=== PATIENT | male | born 1970 | race Caucasian/White ===

== ENCOUNTER 2017-04-18 16:57 | Emergency (ER) | payer SELFPAY ==
[~2017-04-18] VITALS: Ht 160 cm; Wt 80.0 kg
[~2017-04-18 16:57] MED LIST: IBUP800T23 PO
[2017-04-18 16:58] VITALS: BP 186/89; PULSE 114; RESP 16; TEMP 98.4; O2SAT 98
--- NOTE | 2017-04-18 18:42 | PD ---
HPI Chief Complaint: Psychiatric Symptoms Time Seen by Provider: 18:31 Travel History International Travel<30 days: No Contact w/Intl Traveler<30days: No Traveled to known affect area: No History of Present Illness HPI 46-year-old male with history of hypercholesterolemia, presents to emergency department for evaluation. Patient states that she is recently homeless for about a week. He tells me that this is settling in and he is worsening depression. He has contemplated suicide by putting his belt around his neck. Denies any illicit drug use. Reports alcohol and tobacco dependence. He has no other symptoms to report. PFSH Past Medical History High Cholesterol: Yes Diabetes: No Diminished Hearing: No Tetanus Vaccination: < 5 Years Influenza Vaccination: No ?: Not Past Surgical History Tonsillectomy: Yes Social History Alcohol Use: Yes (BEER THREE TIMES A MONTH ) Tobacco Use: Yes (1 ppd) Substance Use: No Allergies-Medications (Allergen,Severity, Reaction): Coded Allergies: No Known Allergies (Unverified , 06/13/16) Reported Meds & Prescriptions Reported Meds & Active Scripts Active Ibuprofen 800 Mg Tab 800 Mg PO Q6HR PRN Review of Systems Except as stated in HPI: all other systems reviewed are Neg Physical Exam Narrative GENERAL: Well-nourished male patient, in no acute distress SKIN: Focused skin assessment warm/dry. HEAD: Atraumatic. Normocephalic. EYES: Pupils equal and round. No scleral icterus. No injection or drainage. ENT: No nasal bleeding or discharge. Mucous membranes pink and moist. NECK: Trachea midline. No JVD. CARDIOVASCULAR: Tachycardic rate and rhythm. No murmur appreciated. RESPIRATORY: No accessory muscle use. Diminished to auscultation. Breath sounds equal bilaterally. GASTROINTESTINAL: Abdomen and tonic, soft, nontender. Hepatic and splenic margins not palpable. MUSCULOSKELETAL: No obvious deformities. No clubbing. No cyanosis. No edema. NEUROLOGICAL: Awake and alert. No obvious cranial nerve deficits. Motor grossly within normal limits. Normal speech. Data Data Last Documented VS Vital Signs Date Time Temp Pulse Resp B/P (MAP) Pulse Ox O2 Delivery O2 Flow Rate FiO2 04/18/17 18:34 18 04/18/17 16:58 98.4 114 186/89 (121) 98 Orders Orders Complete Blood Count With Diff (04/18/17 18:31) Basic Metabolic Panel (Bmp) (04/18/17 18:31) Psych Screen (04/18/17 18:31) Drug Screen, Random Urine (04/18/17 18:31) Alcohol (Ethanol) (04/18/17 18:31) Labs Laboratory Tests Test 04/18/17 18:40 White Blood Count 19.0 TH/MM3 Red Blood Count 5.94 MIL/MM3 Hemoglobin 17.2 GM/DL Hematocrit 48.3 % Mean Corpuscular Volume 81.2 FL Mean Corpuscular Hemoglobin 28.9 PG Mean Corpuscular Hemoglobin Concent 35.6 % Red Cell Distribution Width 15.1 % Platelet Count 326 TH/MM3 Mean Platelet Volume 8.0 FL Neutrophils (%) (Auto) 63.1 % Lymphocytes (%) (Auto) 27.8 % Monocytes (%) (Auto) 5.9 % Eosinophils (%) (Auto) 1.9 % Basophils (%) (Auto) 1.3 % Neutrophils # (Auto) 12.0 TH/MM3 Lymphocytes # (Auto) 5.3 TH/MM3 Monocytes # (Auto) 1.1 TH/MM3 Eosinophils # (Auto) 0.4 TH/MM3 Basophils # (Auto) 0.2 TH/MM3 CBC Comment AUTO DIFF Blood Urea Nitrogen 16 MG/DL Creatinine 0.95 MG/DL Random Glucose 104 MG/DL Calcium Level 9.1 MG/DL Sodium Level 138 MEQ/L Potassium Level 3.9 MEQ/L Chloride Level 104 MEQ/L Carbon Dioxide Level 28.0 MEQ/L Anion Gap 6 MEQ/L Estimat Glomerular Filtration Rate 86 ML/MIN Urine Opiates Screen NEG Urine Barbiturates Screen NEG Urine Amphetamines Screen NEG Urine Benzodiazepines Screen NEG Urine Cocaine Screen NEG Urine Cannabinoids Screen NEG Ethyl Alcohol Level LESS THAN 3 MG/DL MDM Medical Decision Making Medical Screen Exam Complete: Yes Emergency Medical Condition: Yes Medical Record Reviewed: Yes Differential Diagnosis Mood disorder versus personality disorder versus adjustment reaction disorder Narrative Course 46-year-old male presents to emergency department for evaluation of suicidal thoughts. patient appears without distress. His vital signs are stable. Lab Work is with leukocytosis, patient does have history of this.. He is medically cleared at this time to undergo psychiatric screening for further evaluation and disposition. Mental health screening discussed with the patient. Psychiatric screen ordered. Diagnosis Primary Impression: Adjustment disorder with disturbance of emotion Condition: Stable Marisol Mcdermott Apr 18, 2017 18:42
[2017-04-18 19:11] LABS: BASOPHIL # 0.2 TH/MM3 (0-0.2); BASOPHIL % 1.3 % (0.0-2.0); EOSINOPHIL # 0.4 TH/MM3 (0-0.4); EOSINOPHIL % 1.9 % (0.0-4.0); HEMATOCRIT 48.3 % (39.0-51.0); LYMPH % 27.8 % (9.0-44.0); LYMPHOCYTE # 5.3 TH/MM3 (1.0-4.8); MEAN CELL VOLUME 81.2 FL (80.0-100.0); MEAN CORPUSCULAR HEMOGLOBIN 28.9 PG (27.0-34.0); MEAN CORPUSCULAR HGB CONC 35.6 % (32.0-36.0); MONO % 5.9 % (0.0-8.0); NEUT % 63.1 % (16.0-70.0); PLATELET COUNT 326 TH/MM3 (150-450); RED BLOOD COUNT 5.94 MIL/MM3 (4.50-5.90); RED CELL DISTRIBUTION WIDTH 15.1 % (11.6-17.2)
[2017-04-18 19:19] LABS: ALCOHOL LESS THAN 3 MG/DL (0-5); ANION GAP 6 MEQ/L (5-15); BLOOD UREA NITROGEN 16 MG/DL (7-18); CHLORIDE 104 MEQ/L (98-107); GLOMERULAR FILTRATION RATE 86 ML/MIN (>89); POTASSIUM 3.9 MEQ/L (3.5-5.1); SODIUM (NA) 138 MEQ/L (136-145)
[2017-04-18 19:49] LABS: HEMO FLAGS AUTO DIFF
[2017-04-18 19:58] VITALS: BP 128/81; PULSE 105; RESP 16; O2SAT 97
[2017-04-18 20:39] LABS: BANDS 1 % (0-6); BASOPHILS 1 % (0-2); EOSINOPHILS 1 % (0-4); NEUTROPHIL # MANUAL DIFF 11.8 TH/MM3 (1.8-7.7); PLATELET ESTIMATE SMEAR NORMAL (NORMAL); PLATELET MORPHOLOGY NORMAL (NORMAL); POLYS (SEG NEUTROPHILS) 61 % (16-70); SCAN/DIFF FINAL DIFF MANUAL; WBC DIFF SAMPLE 100
[2017-04-18 22:14] VITALS: BP 128/74; PULSE 105; RESP 19; O2SAT 98
[2017-04-19 02:27] VITALS: BP 136/72; PULSE 105; RESP 18; O2SAT 93
[2017-04-19 06:32] VITALS: BP 139/63; PULSE 98; RESP 16; O2SAT 95
[2017-04-19 11:15] VITALS: BP 152/77; PULSE 93; RESP 18; TEMP 97.8; O2SAT 98
--- NOTE | 2017-04-19 11:17 | PD ---
Physical Exam Date Seen by Provider: Apr 19, 2017 Time Seen by Provider: 11:15 Narrative 46-year-old male who was previously brought in with psychiatric complaints of depression and suicidal ideation after becoming homeless. Patient was medically cleared previously. Patient has no previous psychiatric history. Patient was not Martinez acted but has been voluntary during his stay here. This morning the patient contracts for safety and feels that he is not suicidal at all and wants to leave in order to find himself someplace to stay. I feel the patient is psychiatrically and medically stable for discharge. Data Data Last Documented VS Vital Signs Date Time Temp Pulse Resp B/P (MAP) Pulse Ox O2 Delivery O2 Flow Rate FiO2 04/19/17 06:32 98 16 139/63 (88) 95 Room Air 04/18/17 16:58 98.4 Orders Orders Complete Blood Count With Diff (04/18/17 18:31) Basic Metabolic Panel (Bmp) (04/18/17 18:31) Psych Screen (04/18/17 18:31) Drug Screen, Random Urine (04/18/17 18:31) Alcohol (Ethanol) (04/18/17 18:31) Diet Regular Basic (04/19/17 Breakfast) Diet Regular Basic (04/19/17 Lunch) Labs Laboratory Tests Test 04/18/17 18:40 White Blood Count 19.0 TH/MM3 Red Blood Count 5.94 MIL/MM3 Hemoglobin 17.2 GM/DL Hematocrit 48.3 % Mean Corpuscular Volume 81.2 FL Mean Corpuscular Hemoglobin 28.9 PG Mean Corpuscular Hemoglobin Concent 35.6 % Red Cell Distribution Width 15.1 % Platelet Count 326 TH/MM3 Mean Platelet Volume 8.0 FL Neutrophils (%) (Auto) 63.1 % Lymphocytes (%) (Auto) 27.8 % Monocytes (%) (Auto) 5.9 % Eosinophils (%) (Auto) 1.9 % Basophils (%) (Auto) 1.3 % Neutrophils # (Auto) 12.0 TH/MM3 Lymphocytes # (Auto) 5.3 TH/MM3 Monocytes # (Auto) 1.1 TH/MM3 Eosinophils # (Auto) 0.4 TH/MM3 Basophils # (Auto) 0.2 TH/MM3 CBC Comment AUTO DIFF Differential Total Cells Counted 100 Neutrophils % (Manual) 61 % Band Neutrophils % 1 % Lymphocytes % 29 % Monocytes % 7 % Eosinophils % 1 % Basophils % 1 % Neutrophils # (Manual) 11.8 TH/MM3 Differential Comment FINAL DIFF MANUAL Atypical Lymphocytes % Platelet Estimate NORMAL Platelet Morphology Comment NORMAL Blood Urea Nitrogen 16 MG/DL Creatinine 0.95 MG/DL Random Glucose 104 MG/DL Calcium Level 9.1 MG/DL Sodium Level 138 MEQ/L Potassium Level 3.9 MEQ/L Chloride Level 104 MEQ/L Carbon Dioxide Level 28.0 MEQ/L Anion Gap 6 MEQ/L Estimat Glomerular Filtration Rate 86 ML/MIN Urine Opiates Screen NEG Urine Barbiturates Screen NEG Urine Amphetamines Screen NEG Urine Benzodiazepines Screen NEG Urine Cocaine Screen NEG Urine Cannabinoids Screen NEG Ethyl Alcohol Level LESS THAN 3 MG/DL MDM Medical Record Reviewed: Yes Supervised Visit with ROLANDO: Yes Narrative Course 46-year-old male who was previously brought in with psychiatric complaints of depression and suicidal ideation after becoming homeless. Patient was medically cleared previously. Patient has no previous psychiatric history. Patient was not Martinez acted but has been voluntary during his stay here. This morning the patient contracts for safety and feels that he is not suicidal at all and wants to leave in order to find himself someplace to stay. I feel the patient is psychiatrically and medically stable for discharge. Diagnosis Primary Impression: Adjustment disorder with disturbance of emotion Patient Instructions: General Instructions Med/Other Pt SpecificInfo: No Meds Exist/No RX given Disposition: 01 DISCHARGE HOME Condition: Stable Carlo Lunsford Apr 19, 2017 11:17
== END 2017-04-19 13:05 | disposition home or self-care (01) ==
LOC: NEPD 16:57 → NEPJ 04-19 13:05
DX: F43.29 Adjustment disorder with other symptoms (principal); F17.200 Nicotine dependence, unspecified, uncomplicated; Z59.0 Homelessness
CPT/HCPCS: 80048; 80307; 85007; 85027; 99284